=== PATIENT | female | born 1995 | race Caucasian/White ===

== ENCOUNTER 2025-05-12 07:28 | Inpatient (IN) ==
[2025-05-12] MEDS ORDERED: OXYTOCIN 30 UNITS/NSS 30 UNITS/500 ML BAG IV PRN (08:18)
[2025-05-12] MEDS ORDERED: CALCIUM CARBONATE 500 MG CHEWABLE TAB PO PRN (08:18)
[2025-05-12] MEDS ORDERED: ACETAMINOPHEN 500 MG TAB PO PRN (08:18)
[2025-05-12 09:10] LABS: Hematocrit (blood only) 34.7 % (37.0-47.0); Hemoglobin 12.1 g/dl (12.0-16.0); Mean Corpuscular Hemoglobin 29.5 pg (25.0-34.0); Mean Corpuscular Volume 84.6 fL (80.0-100.0); Platelet Count 210 K/uL (130-400); RDW Standard Deviation 44.6 fL (36.4-46.3); Red Blood Count 4.10 M/uL (4.20-5.40); White Blood Count 10.09 K/ul (4.8-10.8)
[2025-05-12] MEDS: DINOPROSTONE 10 MG INSERT PV ONE (09:11)
[2025-05-12 09:23] LABS: Alanine Aminotransferase 7.0 U/L (7-52); Albumin Globulin Ratio 0.9 (0.9-2); Albumin Level 2.9 gm/dl (3.4-5.0); Alkaline Phosphatase 116.0 U/L (34-104); Anion Gap 8.0 (3-11); Bilirubin,Total 0.4 mg/dl (0.2-1.0); Blood Urea Nitrogen 11.0 mg/dl (6-23); Calcium 8.6 mg/dl (8.6-10.3); Carbon Dioxide 21.0 mmol/L (21-32); Chloride 108.0 mmol/L (98-107); Creatinine Clr Calc Pharmacy 153.0 ml/min; Globulin 3.3 gm/dl (2.5-4.0); Glucose 96.0 mg/dl (70-99(Fasting)); Potassium 3.8 mmol/L (3.5-5.1); Sodium 137.0 mmol/L (136-145); Total Protein 6.2 gm/dl (6.0-8.3)
--- NOTE | 2025-05-12 09:23 | History & Physical Report ---
Date of Service May 12, 2025 Assessment & Plan (1) IUGR (intrauterine growth restriction): Plan: 29-year-old G1, P0 at 40 weeks and 3 days of gestation, induction of labor for IUGR, AC less than 4 percentile, Vital signs stable afebrile, heart rate reassuring, GBS is negative, Cervix unfavorable, Cervidil is placed in posterior fornix, discussed what to expect during induction of labor, all questions were answered, Continue to monitor closely (2) Post-term , 40-42 weeks of gestation: Admission and Anticipated Discharge Date Admission Date: May 12, 2025 History of Present Illness Primary Care Provider: Cecelia Ann MD Patient is a 29-year-old G1, P0 at 40 weeks and 2 days of gestation who was scheduled for induction of labor for postdates and recent diagnosis of IUGR. She had ultrasound yesterday in the office for signs smaller than dates, abdominal circumference was less than 4 percentile. EFW was 3150 g her has been otherwise uncomplicated. GBS negative. Patient feels well, no complaints, she denies contractions, leakage of fluid, v aginal bleeding. She reports good movements. She denies medical problems other than history of anxiety for which she used to take Effexor but stopped during this and feels well. Allergies Allergy/AdvReac Type Severity Reaction Status Date / Time No Known Allergies Allergy Verified 05/12/25 07:54 Home Medications Medication Instructions Recorded Confirmed Type None (Patient States No Home Meds) ##0 05/01/11 History vit no.95-ferrous 1 tab PO DAILY 05/12/25 05/12/25 History fumarate 28 mg-folic acid 800 mcg tablet () Patient History Medical History IBS (irritable bowel syndrome) Migraine Anxiety Surgical History [place] teeth extracted Family History Mother Breast cancer Social History Smoking Status: Never smoker Hx Alcohol Use: No Hx Substance Use: No Preferred Language: Latvian Communication Ability: Effective Visual Impairment: No Limitations Laborer Cutting Tool Required: No Beliefs That Will Affect Care: None marital status: Single marital status details: Niurka Martinez Current Living Situation: Significant Other current occupational status: employed Other Information That Helps Us Care for You: No other: [facility] RN Feels Safe at Home: Yes Safety Concerns: Feels Safe At This Time Diet: regular Assistive Devices: None FINANCIAL ASSISTANCE SPECIALIST History No history of STDs, no history of chlamydia, gonorrhea, herpes Physical Exam Constitutional: WD/WN, vitals as above well developed, well nourished and comfortable Gastrointestinal (Abdomen): normal bowel sounds, soft, nontender, no hepatosplenomegaly ( gravid) Genitourinary: normal external appearance OB Exam Abdomen: + vertex Manual OB Exam: + cervical dilation (0), + cervical effacement (soft) and + station high OB Exam Monitor Tracing: + external uterine monitor used and + category I Results & Data Vital Signs (Past 12 Hours) Vital Signs Temp Pulse Resp BP 05/12/25 07:57 36.7 C 88 20 120/75 05/12/25 07:47 88 120/75 Laboratory Results Lab Results 05/12/25 Range/Units 08:39 WBC 10.09 (4.8-10.8) K/ul RBC 4.10 L (4.20-5.40) M/uL Hgb 12.1 (12.0-16.0) g/dl Hct 34.7 L (37.0-47.0) % MCV 84.6 (80.0-100.0) fL MCH 29.5 (25.0-34.0) pg MCHC 34.9 (32.0-36.0) g/dL RDW Std Deviation 44.6 (36.4-46.3) fL RDW Coeff of Melodie 14.5 (11.5-14.5) % Plt Count 210 (130-400) K/uL MPV 10.7 (9.4-12.4) fL
--- NOTE | 2025-05-12 14:46 | Obstetrical Progress Note ---
Date of Service May 12, 2025 Assessment & Plan Admission and Anticipated Discharge Date Admission Date: May 12, 2025 Subjective Patient is reevaluated. She feels well, no complaints. She feels mild irregular menstrual type cramping off and on. They are not painful. She denies leakage of fluid or vaginal bleeding. She reports good movements. Bedside ultrasound done by myself, vertex presentation, placenta anterior, AFV within normal limits, heart rate 140s, Continue to monitor closely Results & Data Vital Signs (Past 12 Hours) Vital Signs Temp Pulse Resp BP 05/12/25 12:19 36.7 C 74 20 109/68 05/12/25 07:57 36.7 C 88 20 120/75 05/12/25 07:47 88 120/75
--- NOTE | 2025-05-12 21:48 | Obstetrical Progress Note ---
Date of Service May 12, 2025 Assessment & Plan Admission and Anticipated Discharge Date Admission Date: May 12, 2025 Subjective Patient is reevaluated. She started to feel more contractions. They are uncomfortable but not painful. She rates the pain 5 out of 10 and does not need pain medication. No leakage of fluid or vaginal bleeding. She reports good movements. heart rate category 1, [place] shows contractions Q 2 to 5 minutes, Cervidil is removed cervix is 3 cm dilated, 50% effaced, head at -3 station, posterior, soft, Discussed the findings and what to expect, may need oxytocin to augment contractions, All questions were answered, Continue to monitor closely. Results & Data Vital Signs (Past 12 Hours) Vital Signs Temp Pulse Resp BP 05/12/25 18:52 36.7 C 86 20 121/69 05/12/25 15:13 78 113/70 05/12/25 12:19 36.7 C 74 20 109/68
[2025-05-13] MEDS: BUTORPHANOL TARTRATE 1 MG/ML VIAL IV PRN (03:25)
[2025-05-13] MEDS: LACTATED RINGER'S 1,000 ML IV PRN (04:30)
[2025-05-13] MEDS ORDERED: PROMETHAZINE 6.25 MG/50.25 ML BAG IV PRN (04:33)
[2025-05-13] MEDS ORDERED: LIDOCAINE 2% MPF LOCAL 5 ML VIAL EPI PRN (04:33)
[2025-05-13] MEDS ORDERED: NALOXONE HCL 1 MG in SODIUM CHLORIDE 0.9% 1,000 ML IV PRN (04:33)
[2025-05-13] MEDS ORDERED: NALOXONE HCL 0.4 MG/1 ML VIAL/CARP IV PRN (04:33)
[2025-05-13] MEDS ORDERED: ROPIVACAINE 0.5% PF 5 MG/ML 20 ML VIAL EPI PRN (04:33)
[2025-05-13] MEDS ORDERED: SODIUM CHLORIDE 0.9% PF INJ 10 ML VIAL EPI PRN (04:33)
[2025-05-13] MEDS ORDERED: BUPIVACAINE 0.25% PF 30 ML VIAL EPI PRN (04:33)
[2025-05-13] MEDS ORDERED: ONDANSETRON INJ 2 MG/ML 2 ML VIAL IV PRN (04:33)
[2025-05-13] MEDS ORDERED: fentANYL 2 MCG/ML BUPIVacaine 0.125%-NSS 100ML BAG EPI PRN (04:33)
[2025-05-13] MEDS ORDERED: diphenhydrAMINE 50 MG/ML VIAL IV PRN (04:33)
[2025-05-13] MEDS ORDERED: NALBUPHINE HCL INJ 10 MG/ML AMP IV PRN (04:33)
--- NOTE | 2025-05-13 04:33 | Anesthesiology Consultation ---
Date of Service May 13, 2025 Assessment & Plan Chart Review Chart Review: Patient NOT seen in Pre Admission Testing and Acceptable Risk for Labor Epidural Consults Requested none ASA ASA2 Proposed Anesthesia Anesthesia Type: Labor Epidural Risk / Benefits Reviewed With: PT / POA / Parent / Guardian, Accepts Plan and Informed Consent Obtained History Height/Weight Height: 5 ft 6 in Weight: 100.244 kg Allergies Allergy/AdvReac Type Severity Reaction Status Date / Time No Known Allergies Allergy Verified 05/12/25 07:54 Medications Home Medications Medication Instructions Recorded Confirmed Last Taken None (Patient States No Home Meds) ##0 05/01/11 Unknown vit no.95-ferrous 1 tab PO DAILY 05/12/25 05/12/25 05/12/25 fumarate 28 mg-folic acid 800 mcg tablet () Active Medications Generic Name Dose Route Start Last Admin Trade Name Freq PRN Reason Stop Dose Admin Butorphanol Tartrate 1 mg 05/12/25 15:58 05/13/25 03:25 Butorphanol Tartrate 1 Mg/Ml Vial IV 06/11/25 15:57 1 mg Q2H PRN Administration Pain Past Medical History Medical History IBS (irritable bowel syndrome) Migraine Anxiety Exercise / Class Metabolic Activity II 4-5 Yardwork/Stairs/Walk up hill Past Family History Family History Mother Breast cancer Past Surgical History Surgical History [place] teeth extracted Past Anesthesia History No Hx of Anesthesia Complications and No Family Hx of Anesthesia Complications History of PONV No Hx of PONV and No Hx of Motion Sickness Social History Smoking Status: Never smoker Hx Alcohol Use: No Hx Substance Use: No Physical Exam Vital Signs Last Vital Signs Temp 36.8 C 05/12/25 23:10 Pulse 79 05/12/25 23:11 Resp 18 05/12/25 23:10 BP 125/80 05/12/25 23:11 ENMT Mouth: no dentition abnormality Thyromental Distance: > or= 3.5 Finger Breadths Mallampati Class: II Neck normal visual inspection Respiratory normal respiratory effort Auscultation: lungs clear to auscultation bilaterally Cardiovascular Rate/Rhythm: regular rate and regular rhythm Psychiatric Orientation: alert Testing Laboratory Results 05/12/25 08:39 05/12/25 08:39 Blood Type A Positive 05/12/25 08:39 Antibody Screen NEGATIVE 05/12/25 08:39
[2025-05-13] MEDS: fentANYL 2 MCG/ML BUPIVacaine 0.125%-NSS 100ML BAG ONE (04:51)
[2025-05-13] MEDS: BUPIVACAINE 0.25% PF 30 ML VIAL ONE (04:52)
[2025-05-13] MEDS: LIDOCAINE 2%/EPINEPHRINE 1:200,000 20 ML PF ONE (04:52)
[2025-05-13] MEDS: BUPIVACAINE 0.25% PF 30 ML VIAL EPI STA (07:13)
[2025-05-13] MEDS: SODIUM CHLORIDE 0.9% PF INJ 10 ML VIAL ONE (07:13)
[2025-05-13] MEDS: LIDOCAINE 2%/EPINEPHRINE 1:200,000 20 ML PF EPI STA (07:14)
[2025-05-13] MEDS: SODIUM CHLORIDE 0.9% PF INJ 10 ML VIAL EPI STA (07:14)
[2025-05-13] MEDS: OXYTOCIN 30 UNITS/NSS 30 UNITS/500 ML BAG IV PRN (08:12)
--- NOTE | 2025-05-13 08:40 | Labor Progress Brief Note ---
Date of Service May 13, 2025 Assessment & Plan Admission and Anticipated Discharge Date Admission Date: May 12, 2025 Physical Exam Genitourinary: Manual OB Exam: + cervical dilation 10 cm, + cervical effacement 100%, + station + 1 and + amniotic fluid (Will start to push) clear and bloody OB Exam Monitor Tracing: + external FHT monitor used, + external uterine monitor used, + category I and + normal FHT variability Results & Data Vital Signs (Past 12 Hours) Vital Signs Temp Pulse Resp BP Pulse Ox 05/13/25 08:37 109 H 99 05/13/25 08:32 84 99 05/13/25 08:27 76 99 05/13/25 08:22 78 98 05/13/25 08:21 77 104/56 L 05/13/25 08:17 79 99 05/13/25 08:12 77 99 05/13/25 08:07 76 99 05/13/25 08:06 73 105/56 L 05/13/25 08:02 74 99 05/13/25 07:57 78 99 05/13/25 07:52 76 99 05/13/25 07:51 76 105/55 L 05/13/25 07:47 72 98 05/13/25 07:42 69 99 05/13/25 07:37 98 05/13/25 07:37 80 05/13/25 07:37 77 119/68 05/13/25 07:32 88 99 05/13/25 07:30 20 05/13/25 07:30 20 05/13/25 07:27 85 98 05/13/25 07:22 99 05/13/25 07:22 75 05/13/25 07:22 74 113/59 L 05/13/25 07:17 89 99 05/13/25 07:12 79 99 05/13/25 07:07 90 100 05/13/25 07:02 96 H 97 05/13/25 07:00 36.8 C 20 05/13/25 06:57 84 100 05/13/25 06:52 78 99 05/13/25 06:50 76 94 05/13/25 06:47 74 95 05/13/25 06:42 73 97 05/13/25 06:37 78 96 05/13/25 06:36 71 101/62 05/13/25 06:32 78 96 05/13/25 06:27 76 97 05/13/25 06:22 80 97 05/13/25 06:17 83 98 05/13/25 06:12 78 98 05/13/25 06:08 93 H 118/57 L 05/13/25 06:07 92 H 98 05/13/25 06:02 78 96 05/13/25 05:57 69 97 05/13/25 05:52 84 97 05/13/25 05:47 87 98 05/13/25 05:42 83 98 05/13/25 05:37 76 98 05/13/25 05:32 80 99 05/13/25 05:28 83 120/65 05/13/25 05:27 88 99 05/13/25 05:22 86 100 05/13/25 05:17 93 H 100 05/13/25 05:14 94 H 119/67 05/13/25 05:12 90 100 05/13/25 05:07 86 98 05/13/25 05:02 85 97 05/13/25 04:57 96 H 118/69 98 05/13/25 04:55 93 H 126/68 05/13/25 04:53 87 116/63 05/13/25 04:52 87 97 05/13/25 04:51 85 116/61 05/13/25 04:50 88 136/60 05/13/25 04:47 85 96 05/13/25 04:43 104 H 88 L 05/13/25 04:42 100 H 99 05/13/25 04:41 109 H 142/86 H 05/13/25 04:37 105 H 96 05/12/25 23:11 79 125/80 05/12/25 23:10 18 05/12/25 23:10 36.8 C 18
--- NOTE | 2025-05-13 09:48 | Delivery Summary ---
Vaginal Delivery Summary Date of Service May 13, 2025 Vaginal Delivery Summary live male PRABHAKAR over intact perineum with nuchal cord x1 reduced at time of delivery of head. Delayed cord clamping with Apgars of 8/9 weight pending. Cord blood obtained followed by spontaneous delivery of intact placenta. First degree tear repaired with 3/0 Vicryl suture. Final sponge, needle and instrument count are correct. QBL is pending. Mom and baby stable.
[2025-05-13] MEDS ORDERED: HYDROCORTISONE ACETATE 25 MG SUPP PR PRN (09:52)
[2025-05-13] MEDS ORDERED: ACETAMINOPHEN 325 MG TAB PO PRN (09:52)
[2025-05-13] MEDS ORDERED: OXYTOCIN 30 UNITS/NSS 30 UNITS/500 ML BAG IV PRN (09:52)
[2025-05-13] MEDS: DIPHTHER/TETAN/PERTUS Vaccine (Tdap, Adol/Adult) 0.5mL IM ONE (12:26)
[2025-05-13] MEDS: LIDOCAINE 1% LOCAL 20 ML VIAL INFIL PRN (12:46)
[2025-05-13] MEDS: BENZOCAINE 20% SPRY 85 APPLN/85 GM CAN EXT PRN (13:05)
--- NOTE | 2025-05-13 13:58 | Anesthesia Procedure Note ---
Date of Service May 13, 2025 Anesthesia Post Epidural Note Vital Signs Vital Signs: Temp Pulse Resp BP Pulse Ox 36.8 C 92 H 20 112/65 100 05/13/25 07:00 05/13/25 13:21 05/13/25 12:06 05/13/25 13:21 05/13/25 09:42 Notes Mental Status: alert / awake / arousable and participated in evaluation Nausea / Vomiting: adequately controlled Pain: adequately controlled Airway Patency, RR, SpO2: stable & adequate BP & HR: stable & adequate Hydration State: stable & adequate Neuraxial Anesthesia: was administered and sensory block is resolving Anesthetic Complications: no major complications apparent Epidural: Removed without complications and With tip intact
[2025-05-13] MEDS: IBUPROFEN 600 MG TAB PO PRN (15:02)
[2025-05-14] MEDS: DOCUSATE SODIUM 100 MG CAP PO SCH (00:29)
[2025-05-14 07:24] LABS: Hematocrit (blood only) 29.5 % (37.0-47.0); Hemoglobin 9.5 g/dl (12.0-16.0); Mean Corpuscular Hemoglobin 27.8 pg (25.0-34.0); Mean Corpuscular Volume 86.3 fL (80.0-100.0); Platelet Count 182 K/uL (130-400); RDW Standard Deviation 46.8 fL (36.4-46.3); Red Blood Count 3.42 M/uL (4.20-5.40); White Blood Count 13.83 K/ul (4.8-10.8)
[2025-05-14] MEDS: FERROUS SULFATE 325 MG TAB PO SCH (07:35)
[2025-05-14] MEDS: PRENATAL VITAMIN 1 TAB PO SCH (07:35)
[2025-05-14] MEDS ORDERED: NON-FORMULARY MEDICATION (Pnv No.95-Ferrous Fumarate-Fa [Prenatal] 28 mg iron- 800 mcg Tab PO SCH (09:00)
--- NOTE | 2025-05-14 09:26 | Obstetrical Progress Note ---
Date of Service May 14, 2025 Subjective Ambulation: ambulating normally Voiding: no voiding problems Passing Gas:: Yes Diet Tolerance:: regular diet Lochia:: Small Feeding Type:: breast feeding Current Pain Level(1-10): 0 doing well Physical Exam Constitutional WD/WN, vitals as above Gastrointestinal (Abdomen) Inspection/Auscultation: abdomen normal to inspection abdomen soft and non-tender. fundus firm below U. Results & Data Vital Signs (Past 12 Hours) Vital Signs Temp Pulse Resp BP Pulse Ox O2 Del Method 05/14/25 07:30 36.8 C 80 16 123/80 97 Room Air 05/14/25 04:00 36.9 C 82 16 126/83 99 Room Air 05/14/25 00:25 36.9 C 87 16 108/73 98 Room Air Laboratory Results 05/12/25 05/14/25 08:39 07:06 WBC 10.09 13.83 H RBC 4.10 L 3.42 L Hgb 12.1 9.5 L Hct 34.7 L 29.5 L MCV 84.6 86.3 MCH 29.5 27.8 MCHC 34.9 32.2 RDW Std Deviation 44.6 46.8 H RDW Coeff of Melodie 14.5 14.9 H Plt Count 210 182 MPV 10.7 10.4 Sodium 137 Potassium 3.8 Chloride 108 H Carbon Dioxide 21 Anion Gap 8 BUN 11 Creatinine 0.66 Est Cr Clr Drug Dosing 153.0 eGFR 123.23 BUN/Creatinine Ratio 16.7 Glucose 96 Calcium 8.6 Total Bilirubin 0.4 AST 15 ALT 7 Alkaline Phosphatase 116 H Total Protein 6.2 Albumin 2.9 L Globulin 3.3 Albumin/Globulin Ratio 0.9 Treponema pallidum Ab Negative Blood Type A Positive Antibody Screen NEGATIVE
[2025-05-15 06:18] LABS: Hematocrit (blood only) 26.9 % (37.0-47.0); Hemoglobin 9.1 g/dl (12.0-16.0)
--- NOTE | 2025-05-15 07:37 | Obstetrical Progress Note ---
Date of Service May 15, 2025 Subjective Ambulation: ambulating normally Voiding: no voiding problems Passing Gas:: Yes Diet Tolerance:: regular diet Lochia:: Small Feeding Type:: breast feeding Current Pain Level(1-10): 0 doing well Physical Exam Constitutional WD/WN, vitals as above Gastrointestinal (Abdomen) Inspection/Auscultation: abdomen normal to inspection abdomen soft and non-tender, fundus firm below U Musculoskeletal Extremities: extremities normal to inspection Skin no rashes, warm and dry Neurologic patellar DTR's 2+ bilat, sensation intact Psychiatric A+Ox3, euthymic affect Results & Data Vital Signs (Past 12 Hours) Vital Signs Temp Pulse Resp BP Pulse Ox O2 Del Method 05/15/25 00:30 36.7 C 74 18 107/71 98 Room Air 05/14/25 19:45 36.5 C 81 18 116/75 97 Room Air Laboratory Results Laboratory Results - last 72 hr 05/12/25 05/14/25 05/15/25 08:39 07:06 05:48 WBC 10.09 13.83 H RBC 4.10 L 3.42 L Hgb 12.1 9.5 L 9.1 L Hct 34.7 L 29.5 L 26.9 L MCV 84.6 86.3 MCH 29.5 27.8 MCHC 34.9 32.2 RDW Std Deviation 44.6 46.8 H RDW Coeff of Melodie 14.5 14.9 H Plt Count 210 182 MPV 10.7 10.4 Sodium 137 Potassium 3.8 Chloride 108 H Carbon Dioxide 21 Anion Gap 8 BUN 11 Creatinine 0.66 Est Cr Clr Drug Dosing 153.0 eGFR 123.23 BUN/Creatinine Ratio 16.7 Glucose 96 Calcium 8.6 Total Bilirubin 0.4 AST 15 ALT 7 Alkaline Phosphatase 116 H Total Protein 6.2 Albumin 2.9 L Globulin 3.3 Albumin/Globulin Ratio 0.9 Treponema pallidum Ab Negative Blood Type A Positive Antibody Screen NEGATIVE
[2025-05-15 07:41] VITALS: BP 123/94; PULSE 77; RESP 17; TEMP 98.2; O2SAT 97
== END 2025-05-15 12:08 | disposition home or self-care (01) | DRG 807 ==
LOC: 4S1 07:28 → 4E2 05-13 15:00